=== PATIENT | male | born 1965 ===

== ENCOUNTER 2020-07-26 10:37 | Outpatient (REF) | payer MEDICAID, SELFPAY ==
[2020-07-26 21:44] LABS: ALT 36 U/L (16-63); AST 19 U/L (15-37); Albumin 4.1 g/dL (3.4-5.0); Alkaline Phosphatase 52 U/L (46-116); Anion Gap 9.9 mmol/L (3-11); BUN 18 mg/dL (7-18); Bilirubin, Total 0.6 mg/dL (0.2-1.0); CO2 27.1 mmol/L (21.0-32.0); CREATININE 0.98 mg/dL (0.70-1.30); Calcium 9.1 mg/dL (8.5-10.1); Calculated LDL 110 mg/dL (<100); Chloride 105 mmol/L (98-107); Cholesterol 214 mg/dL (<200); Glucose 87 mg/dL (74-106); HDL Cholesterol 70 mg/dL (40-60); Potassium 4.1 mmol/L (3.5-5.1); Sodium 142 mmol/L (136-145); Total Protein 7.4 g/dL (6.4-8.2); Triglyceride 174 mg/dL (<150)
== END 2020-07-26 10:57 ==
LOC: NCHCN 10:37
PROVIDERS: Visit Provider Family Medicine
DX: Z00.00 Encounter for general adult medical examination without abnormal findings (principal); F10.10 Alcohol abuse, uncomplicated
CPT/HCPCS: 80053; 80061

== ENCOUNTER 2023-05-22 17:45 | Outpatient (REF) | payer MEDICAID, SELFPAY ==
[2023-05-22 21:24] LABS: HCT 44.2 % (40.0-50.0); HGB 15.5 g/dL (13.5-17.5); MCHC 35.1 % (32.0-36.0); MCV 88 fL (80-95); MPV 9.4 fL (8.0-11.0); Platelet Count 307 10^3/uL (130-400); RDW 12.3 % (11.8-14.1); RDW-SD 39.6 fL; WBC 9.07 10^3/uL (4.4-10.8)
[2023-05-22 21:44] LABS: ALT 36 U/L (16-63); AST 31 U/L (15-37); Albumin 4.2 g/dL (3.4-5.0); Alkaline Phosphatase 70 U/L (46-116); Anion Gap 8.8 mmol/L (3-11); BUN 13 mg/dL (7-18); Bilirubin, Total 0.3 mg/dL (0.2-1.0); CO2 27.2 mmol/L (21.0-32.0); CREATININE 0.9 mg/dL (0.70-1.30); Calcium 9.6 mg/dL (8.5-10.1); Calculated LDL 117 mg/dL (<100); Chloride 101 mmol/L (98-107); Cholesterol 249 mg/dL (<200); Estimated GFR 100.24 (mL/min/1.73m2); Glucose 90 mg/dL (74-106); HDL Cholesterol 59 mg/dL (40-60); Sodium 137 mmol/L (136-145); Total Protein 8.6 g/dL (6.4-8.2); Triglyceride 369 mg/dL (<150)
[2023-05-23 18:27] LABS: PSA, Screening 0.4 ng/mL (<=3.5)
== END 2023-05-22 17:46 | disposition home or self-care (01) ==
LOC: NCHCN 17:45
PROVIDERS: Visit Provider Family Medicine
DX: F10.10 Alcohol abuse, uncomplicated (principal); E78.00 Pure hypercholesterolemia, unspecified; Z12.5 Encounter for screening for malignant neoplasm of prostate; Z00.00 Encounter for general adult medical examination without abnormal findings
CPT/HCPCS: 80053; 80061; 84153; 85027

== ENCOUNTER 2023-06-21 19:02 | Outpatient (REF) | payer MEDICAID, SELFPAY ==
--- NOTE | 2023-06-21 14:15 | SKI_PTH ---
PATIENT: Bo Simental LOC: [facility] U#:[id number] AGE/SX: 58/M ROOM: RE06/21/[address]: MILLA: 1965 BED: DIS: 06/21/2023 SPEC #: [id number] RECD: 06/22/23 12:48 STATUS: ANTONETTE BURNETTE #: [id number] RICARDO: 06/21/23 14:[address]: Lalitha Johnson DEPT: Surgical Specimen RECD BY: Elicia Mcknight Tissues: 1 - SKIN BIOPSY(SHAVE/PUNCH) 2 - SKIN BIOPSY(SHAVE/PUNCH) Procedures: SKIN LEVEL 4 Comments: [id number]
== END 2023-06-21 19:03 | disposition home or self-care (01) ==
LOC: NCHCN 19:02
PROVIDERS: Visit Provider Family Medicine
DX: D48.5 Neoplasm of uncertain behavior of skin (principal)
CPT/HCPCS: 88305